=== PATIENT | female | born 1975 | race Caucasian/White ===

== ENCOUNTER → 2017-02-11 | Outpatient (CLI) | payer MEDICAID ==
--- NOTE | 2017-02-11 22:31 | RADIOLOGY REPORT PS360 ---
ANKLE-RT-3 VIEWS INDICATION: Right ankle pain, ankle in door. TECHNIQUE: 3 views right ankle COMPARISON: None available FINDINGS: No fracture nor dislocation apparent. Visualized joint space well maintained. Normal mineralization. No obvious radio opaque foreign bodies. Unremarkable soft tissues. IMPRESSION: Right ankle intact. No fracture
--- NOTE | 2017-02-11 22:32 | RADIOLOGY REPORT PS360 ---
FOOT-RT-3 VIEWS Ordering Physician: SELAM PEOPLES MD Patient Age: 41 years: Female HISTORY: RT FOOT /ANKLE PAINpain injury TECHNIQUE: 3 views right foot FINDINGS Right foot is intact with no fracture nor dislocation. Bones well mineralized. Metatarsals and toes intact. Tarsals unremarkable. Joint spaces well-maintained. IMPRESSION: ------ . 1 Negative right foot
== END ==
LOC: RAD 12:17
DX: M79.671 Pain in right foot (principal); M25.571 Pain in right ankle and joints of right foot